=== PATIENT | male | born 1975 | race Caucasian/White ===

== ENCOUNTER → 2017-06-04 | Outpatient (CLI) | payer BC ==
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
== END | disposition home or self-care (01) ==
LOC: RADXRMAIN 16:30
PROVIDERS: ATTEND Orthopaedic Surgery
DX: Z47.89 Encounter for other orthopedic aftercare (principal); S72.90XA Unspecified fracture of unspecified femur, initial encounter for closed fracture

== ENCOUNTER → 2017-07-11 | Outpatient (CLI) | payer BC, OTHER ==
[2017-07-11 11:03] LABS: Basophils # (A) 0.1 k/uL (0-0.2); Basophils % (A) 1 %; Eosinophils # (A) 0.3 k/uL (0-0.7); Eosinophils % (A) 2 %; HCT 46.4 % (39.0-53.0); HGB 15.4 gm/dL (13.0-17.5); Lymphocytes % (A) 44 %; MCH 30.2 pg (25.0-35.0); MCHC 33.1 g/dL (31.0-37.0); MCV 91.3 fL (80.0-100.0); Mean Platelet Volume 6.9; Monocytes # (A) 0.6 k/uL (0-1.0); Monocytes % (A) 5 %; Neutrophils # (A) 5.1 k/uL (1.3-7.7); Neutrophils % (A) 45 %; Platelet Count 277 k/uL (150-450); RBC 5.09 m/uL (4.30-5.90); RDW 13.9 % (11.5-15.5); WBC 11.4 k/uL (3.8-10.6)
[2017-07-11 12:52] LABS: Erythrocyte Sedimentation Rate 2 mm/hr (0-15)
== END | disposition home or self-care (01) ==
LOC: LABWHC1 10:33
PROVIDERS: ATTEND Orthopaedic Surgery
DX: Z47.89 Encounter for other orthopedic aftercare (principal); S72.90XA Unspecified fracture of unspecified femur, initial encounter for closed fracture
CPT/HCPCS: 36415; 85025; 85652; 86140

== ENCOUNTER 2017-07-16 01:46 | Emergency (ER) | payer BC, OTHER ==
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
[2017-07-16 03:17] LABS: Amphetamine Screen,Urine Detected (NotDetected); Barbiturate Screen,Urine Not Detected (NotDetected); Benzodiazepines Screen,Urine Not Detected (NotDetected); Cocaine Screen,Urine Not Detected (NotDetected); Methadone Screen, Urine Not Detected (NotDetected); Opiate Screen,Urine Not Detected (NotDetected); Oxycodone Screen, Urine Not Detected (NotDetected); Phencyclidine Screen,Urine Not Detected (NotDetected); Tricyclic Antidepressant,Urine Not Detected (NotDetected); Urn Cannabinoid Scrn Detected (NotDetected)
[2017-07-16] MEDS ORDERED: NICOTINE 21MG/24HR PATCH TRANSDERM STA (04:08)
[2017-07-16 10:24] VITALS: BP 122/74; PULSE 105; RESP 16; TEMP 98.3
== END 2017-07-16 10:28 | disposition home or self-care (01) ==
LOC: EC 01:46
DX: F32.9 Major depressive disorder, single episode, unspecified (principal); F10.10 Alcohol abuse, uncomplicated; F17.200 Nicotine dependence, unspecified, uncomplicated
CPT/HCPCS: 99284; 82075; 80306; S4990

== ENCOUNTER 2021-07-13 10:51 | Inpatient (IN) | payer BC, OTHER ==
--- NOTE | 2021-07-13 11:33 | XR ---
EXAMINATION TYPE: XR chest 2V DATE OF EXAM: 07/13/2021 COMPARISON: Chest x-ray October 04, 2013 HISTORY: Difficulty in breathing. TECHNIQUE: Frontal and lateral views of the chest are obtained. FINDINGS: There is no focal air space opacity, pleural effusion, or pneumothorax seen. The cardiac silhouette size remains within normal limits. Slight underlying scoliotic curvature is noted. IMPRESSION: No acute cardiopulmonary process.
--- NOTE | 2021-07-13 11:42 | ED ---
General Adult HPI - General Chief complaint: Shortness of Breath Stated complaint: ETOH withdrawal Time Seen by Provider: 07/13/21 10:53 Source: patient, EMS, RN notes reviewed, old records reviewed Mode of arrival: EMS Limitations: no limitations - History of Present Illness Initial comments: 46-year-old male presenting from [place]. Patient was found to have a alcohol level greater than 300 and was sent to the emergency department for evaluation. He has had some dyspnea as well as chest discomfort. He admits to drinking today. He denies vomiting. Denies a known history of coronary artery disease. He is a current smoker. - Related Data Home Medications Medication Instructions Recorded Confirmed No Known Home Medications 07/13/21 07/13/21 Allergies Allergy/AdvReac Type Severity Reaction Status Date / Time walnut Allergy Swelling Verified 07/13/21 11:54 Review of Systems ROS Statement: Those systems with pertinent positive or pertinent negative responses have been documented in the HPI. ROS Other: All systems not noted in ROS Statement are negative. Past Medical History Past Medical History: Renal Disease History of Any Multi-Drug Resistant Organisms: None Reported Past Surgical History: Orthopedic Surgery Additional Past Surgical History / Comment(s): nasal surgery Past Anesthesia/Blood Transfusion Reactions: No Reported Reaction Past Psychological History: Anxiety Past Alcohol Use History: Occasional Past Drug Use History: Marijuana General Exam Limitations: no limitations General appearance: alert, appears intoxicated Head exam: Present: atraumatic, normocephalic Eye exam: Present: normal appearance, PERRL ENT exam: Present: normal exam Neck exam: Present: normal inspection. Absent: tenderness, meningismus Respiratory exam: Present: normal lung sounds bilaterally. Absent: respiratory distress, wheezes Cardiovascular Exam: Present: regular rate, normal rhythm GI/Abdominal exam: Present: soft. Absent: distended, tenderness Extremities exam: Present: normal inspection, normal capillary refill. Absent: pedal edema, calf tenderness Neurological exam: Present: alert, oriented X3, CN II-XII intact. Absent: motor sensory deficit Psychiatric exam: Present: depressed Skin exam: Present: warm, dry, intact. Absent: cyanosis, diaphoretic Course Vital Signs 07/13/21 07/13/21 07/13/21 10:59 11:21 12:11 Temperature 98.8 F Pulse Rate 92 96 Respiratory 16 17 19 Rate Blood Pressure 146/103 132/90 O2 Sat by Pulse 95 97 Oximetry EKG Findings - EKG Comments: EKG Findings:: EKG: Sinus rhythm with rate of 86, AL interval 142, QRS duration 98, QTC 419, no ST segment elevation. Medical Decision Making - Medical Decision Making 46-year-old male history of alcohol abuse presenting for evaluation prior to admission to [place] [id number]. Patient complained of some dyspnea and chest pain. Workup revealed a normal CBC with a mild thrombocytopenia. He has a significantly elevated d-dimer at 1.48 this was fo llowed up with CT angiography which is negative for pulmonary embolism. He has a CO2 of 18 and a lactic acidosis of 5.7 this treated with IV hydration this is not secondary to sepsis but secondary to dehydration from alcohol abuse. His alcohol level is 292. He'll be admitted for IV hydration, and Ativan according to [facility] protocol. I did discuss case with [facility]. - Lab Data Result diagrams: 07/13/21 11:15 07/13/21 11:15 Lab Results 07/13/21 07/13/21 07/13/21 Range/Units 11:15 11:15 11:15 WBC 9.2 (3.8-10.6) k/uL RBC 4.97 (4.30-5.90) m/uL Hgb 15.0 (13.0-17.5) gm/dL Hct 46.3 (39.0-53.0) % MCV 93.1 (80.0-100.0) fL MCH 30.2 (25.0-35.0) pg MCHC 32.4 (31.0-37.0) g/dL RDW 14.0 (11.5-15.5) % Plt Count 123 L (150-450) k/uL MPV 7.5 Neutrophils % 81 % Lymphocytes % 14 % Monocytes % 3 % Eosinophils % 0 % Basophils % 0 % Neutrophils # 7.4 (1.3-7.7) k/uL Lymphocytes # 1.3 (1.0-4.8) k/uL Monocytes # 0.3 (0-1.0) k/uL Eosinophils # 0.0 (0-0.7) k/uL Basophils # 0.0 (0-0.2) k/uL PT 10.4 (9.0-12.0) sec INR 1.0 (<1.2) APTT 23.9 (22.0-30.0) sec D-Dimer 1.48 H (<0.60) mg/L FEU Sodium 134 L (137-145) mmol/L Potassium 4.1 (3.5-5.1) mmol/L Chloride 92 L (98-107) mmol/L Carbon Dioxide 18 L (22-30) mmol/L Anion Gap 24 mmol/L BUN 14 (9-20) mg/dL Creatinine 0.87 (0.66-1.25) mg/dL Est GFR (CKD-EPI)AfAm >90 (>60 ml/min/1.73 sqM) Est GFR (CKD-EPI)NonAf >90 (>60 ml/min/1.73 sqM) Glucose 81 (74-99) mg/dL Plasma Lactic Acid Nahum (0.7-2.0) mmol/L Calcium 8.5 (8.4-10.2) mg/dL Total Bilirubin 1.2 (0.2-1.3) mg/dL AST 245 H (17-59) U/L ALT 156 H (4-49) U/L Alkaline Phosphatase 77 (38-126) U/L Troponin I (0.000-0.034) ng/mL Total Protein 7.7 (6.3-8.2) g/dL Albumin 4.4 (3.5-5.0) g/dL Serum Alcohol 292 H* mg/dL Coronavirus (PCR) (Not Detectd) Influenza Type A RNA (Not Detectd) Influenza Type B (PCR) (Not Detectd) 07/13/21 07/13/21 07/13/21 Range/Units 11:15 11:15 11:15 WBC (3.8-10.6) k/uL RBC (4.30-5.90) m/uL Hgb (13.0-17.5) gm/dL Hct (39.0-53.0) % MCV (80.0-100.0) fL MCH (25.0-35.0) pg MCHC (31.0-37.0) g/dL RDW (11.5-15.5) % Plt Count (150-450) k/uL MPV Neutrophils % % Lymphocytes % % Monocytes % % Eosinophils % % Basophils % % Neutrophils # (1.3-7.7) k/uL Lymphocytes # (1.0-4.8) k/uL Monocytes # (0-1.0) k/uL Eosinophils # (0-0.7) k/uL Basophils # (0-0.2) k/uL PT (9.0-12.0) sec INR (<1.2) APTT (22.0-30.0) sec D-Dimer (<0.60) mg/L FEU Sodium (137-145) mmol/L Potassium (3.5-5.1) mmol/L Chloride (98-107) mmol/L Carbon Dioxide (22-30) mmol/L Anion Gap mmol/L BUN (9-20) mg/dL Creatinine (0.66-1.25) mg/dL Est GFR (CKD-EPI)AfAm (>60 ml/min/1.73 sqM) Est GFR (CKD-EPI)NonAf (>60 ml/min/1.73 sqM) Glucose (74-99) mg/dL Plasma Lactic Acid Nahum 5.6 H* (0.7-2.0) mmol/L Calcium (8.4-10.2) mg/dL Total Bilirubin (0.2-1.3) mg/dL AST (17-59) U/L ALT (4-49) U/L Alkaline Phosphatase (38-126) U/L Troponin I <0.012 (0.000-0.034) ng/mL Total Protein (6.3-8.2) g/dL Albumin (3.5-5.0) g/dL Serum Alcohol mg/dL Coronavirus (PCR) (Not Detectd) Influenza Type A RNA Not Detected (Not Detectd) Influenza Type B (PCR) Not Detected (Not Detectd) 07/13/21 Range/Units 11:15 WBC (3.8-10.6) k/uL RBC (4.30-5.90) m/uL Hgb (13.0-17.5) gm/dL Hct (39.0-53.0) % MCV (80.0-100.0) fL MCH (25.0-35.0) pg MCHC (31.0-37.0) g/dL RDW (11.5-15.5) % Plt Count (150-450) k/uL MPV Neutrophils % % Lymphocytes % % Monocytes % % Eosinophils % % Basophils % % Neutrophils # (1.3-7.7) k/uL Lymphocytes # (1.0-4.8) k/uL Monocytes # (0-1.0) k/uL Eosinophils # (0-0.7) k/uL Basophils # (0-0.2) k/uL PT (9.0-12.0) sec INR (<1.2) APTT (22.0-30.0) sec D-Dimer (<0.60) mg/L FEU Sodium (137-145) mmol/L Potassium (3.5-5.1) mmol/L Chloride (98-107) mmol/L Carbon Dioxide (22-30) mmol/L Anion Gap mmol/L BUN (9-20) mg/dL Creatinine (0.66-1.25) mg/dL Est GFR (CKD-EPI)AfAm (>60 ml/min/1.73 sqM) Est GFR (CKD-EPI)NonAf (>60 ml/min/1.73 sqM) Glucose (74-99) mg/dL Plasma Lactic Acid Nahum (0.7-2.0) mmol/L Calcium (8.4-10.2) mg/dL Total Bilirubin (0.2-1.3) mg/dL AST (17-59) U/L ALT (4-49) U/L Alkaline Phosphatase (38-126) U/L Troponin I (0.000-0.034) ng/mL Total Protein (6.3-8.2) g/dL Albumin (3.5-5.0) g/dL Serum Alcohol mg/dL Coronavirus (PCR) Not Detected (Not Detectd) Influenza Type A RNA (Not Detectd) Influenza Type B (PCR) (Not Detectd) Disposition Clinical Impression: Alcohol intoxication, Lactic acidosis, Dehydration Disposition: ADMITTED IP TO THIS HOSP Condition: Stable Is patient prescribed a controlled substance at d/c from ED?: No Referrals: None,Stated [Primary Care Provider] - 1-2 days Time of Disposition: 13:15
[2021-07-13 11:51] LABS: Partial Thromboplastin Time 23.9 sec (22.0-30.0); Prothrombin Time 10.4 sec (9.0-12.0)
[2021-07-13 11:57] LABS: ALT 156 U/L (4-49); AST 245 U/L (17-59); African American GFR (CKD) >90 (>60 ml/min/1.73 sqM); Albumin 4.4 g/dL (3.5-5.0); Alkaline Phosphatase 77 U/L (38-126); Anion Gap 24 mmol/L; Blood Urea Nitrogen 14 mg/dL (9-20); Calcium 8.5 mg/dL (8.4-10.2); Carbon Dioxide 18 mmol/L (22-30); Chloride 92 mmol/L (98-107); Glucose 81 mg/dL (74-99); Non-African American GFR(CKD) >90 (>60 ml/min/1.73 sqM); Potassium 4.1 mmol/L (3.5-5.1); Sodium 134 mmol/L (137-145); Total Bilirubin 1.2 mg/dL (0.2-1.3); Total Protein 7.7 g/dL (6.3-8.2)
[2021-07-13 12:01] LABS: Basophils % (A) 0 %; Eosinophils % (A) 0 %; HCT 46.3 % (39.0-53.0); Lymphocytes # (A) 1.3 k/uL (1.0-4.8); Lymphocytes % (A) 14 %; MCH 30.2 pg (25.0-35.0); MCHC 32.4 g/dL (31.0-37.0); MCV 93.1 fL (80.0-100.0); Mean Platelet Volume 7.5; Monocytes # (A) 0.3 k/uL (0-1.0); Monocytes % (A) 3 %; Neutrophils # (A) 7.4 k/uL (1.3-7.7); Neutrophils % (A) 81 %; Platelet Count 123 k/uL (150-450); RBC 4.97 m/uL (4.30-5.90); WBC 9.2 k/uL (3.8-10.6)
[2021-07-13 12:15] LABS: Alcohol 292 mg/dL
[2021-07-13] MEDS ORDERED: SODIUM CHLORIDE 0.9% 1,000 ML IV ONE (12:16)
[2021-07-13] MEDS ORDERED: THIAMINE 100 MG/ML 2 ML VIAL IM STA (12:28)
[2021-07-13] MEDS ORDERED: SODIUM CHLORIDE 0.9% 1,000 ML IV STA (12:47)
--- NOTE | 2021-07-13 13:04 | CT ---
EXAMINATION TYPE: CT angio chest DATE OF EXAM: 07/13/2021 COMPARISON: Chest x-ray earlier today HISTORY: chest pain, SOB CT DLP: 313.8 mGycm. Automated Exposure Control for Dose Reduction was Utilized. CONTRAST: CTA scan of the thorax is performed with IV Contrast, patient injected with 68cc mL of Isovue 370, pu lmonary embolism protocol. MIP Images are created on CT scanner and reviewed. FINDINGS: LUNGS: Suboptimal study as there is some motion artifact at multiple levels limiting evaluation for s ubcentimeter nodules. No suspicious focal consolidations. No pleural effusion or pneumonia thorax see n bilaterally. Tracheobronchial tree is patent. MEDIASTINUM: There is satisfactory enhancement of the pulmonary artery and its branches, there is no CT evidence for pulmonary embolism. Satisfactory enhancement of the thoracic aorta without aneurysm or dissection. There are no greater than 1 cm hilar or mediastinal lymph nodes. No cardiomegaly or pericardial effusion is seen. Moderate to severe concentric wall thickening begins above the brooke e xtending to level of the diaphragmatic hiatus. OTHER: Visualized portion of liver is markedly heterogeneously hypodense and prominent in size. IMPRESSION: 1. No CT evidence for acute pulmonary embolism. 2. No suspicious acute pulmonary process. 3. Probable hepatomegaly and fatty hepatocellular disease. 4. Long segment thickening of the mid to distal esophagus, correlate to exclude esophagitis. Reflux e sophagitis would be in differential. Correlate clinically.
[2021-07-13] MEDS ORDERED: HYDROmorphone 0.5 MG/0.5 ML SYRINGE IVP STA (13:06)
[2021-07-13] MEDS ORDERED: NALOXONE 0.4 MG/ML 1 ML VIAL IV PRN (13:24)
[2021-07-13] MEDS ORDERED: PANTOPRAZOLE 40 MG/10 ML VIAL IVP STA (13:24)
[2021-07-13] MEDS ORDERED: NICOTINE GUM (POLACRILEX) 2 MG GUM BUCCAL PRN (14:03)
--- NOTE | 2021-07-13 14:32 | P.HPIM ---
History of Present Illness H&P Date: 07/13/21 History of Presenting Illness: Patient is a very pleasant 46-year-old male with a past medical history of daily EtOH use/abuse and nicotine dependence. He presented to the emergency department from [place] after being found to have an alcohol level greater than 300 and was sent to the emergency department for admission for medical detox prior to returning to [place] for inpatient admission. Upon arrival to the emergency department patient did report feeling mild shortness of breath, chest discomfort, and nausea. He underwent full evaluation. Labs revealing mi ld thrombocytopenia with platelet count of 123, d-dimer elevated at 1.48, sodium 134, and alcohol ketoacidosis with alcohol 292, lactate 5.6, chloride 92, CO2 18, and anion gap of 24. EKG completed revealing sinus rhythm at 86 beats per minute. Troponin negative at less than 0.012. Chest x-ray negative for acute cardiopulmonary process. D-dimer elevated at 1.48. CTA negative for PE revealing probable hepatomegaly and fatty hepatocellular disease with long segment thickening of the mid to distal esophagus. Review of systems: Pertinent positives and negatives as discussed in HPI, a complete review of systems was performed and all other systems are negative. Physical exam: Vital signs reviewed and stable. General: Nontoxic, no distress and appears stated age. Derm: Skin warm and dry, normal coloration for ethnicity. Head: Atraumatic, normocephalic and symmetric. Eyes: EOMs intact, no lid lag, and anicteric sclera Mouth: no lip lesions, mucus membranes moist Cardiovascular: regular rate and rhythm with normal S1S2, no murmur, positive posterior tibial pulses bilaterally, and cap refill < 2 seconds. Lungs: Respirations even, regular, and unlabored on room air. Lungs CTA bilaterally, no rhonchi, no rales, no wheezing, and no accessory muscle usage. Abdominal: soft, nontender to palpation, no guarding, no appreciable organomegaly Ext: ROM intact. No gross muscle atrophy, no edema, no contractures Neuro: Speech clear, face symmetrical and CN II-XII grossly intact with no noted focal neuro deficits Psych: Alert and oriented to person, place, time, and situation. Appropriate and pleasant affect. Assessment and Plan of Care: Alcohol intoxication pending withdrawal Alcohol abuse Alcohol ketoacidosis Concerns of hepatomegaly and fatty hepatocellular disease -[facility] Protocol with symptom triggered medication management with benzodiazepines. -Patient received 2 L bolus in the ER and will receive Continuous IV hydration. -Thiamine 100 mg twice a day -Multivitamin daily -Folate 1 mg daily -Seizure, fall, aspiration, and elopement precautions in place. -Continued close monitoring of electrolytes and replace as needed. -Telemetry monitoring. -Recommend outpatient follow-up with GI for further evaluation of hepatomegaly and fatty hepatocellular disease with long segment thickening of the mid to distal esophagitis. Nicotine dependence -Patient encourage and educated on the benefits of smoking cessation and risks of continued use. -Patient provided with nicotine patch and nicotine gum secondary to smoking greater than one pack of cigarettes daily. Esophageal thickening -Possibly secondary to reflux esophagitis, recommend outpatient follow-up with gastroenterology for EGD to further evaluate and accurately diagnose. The patient is admitted with an anticipated less than 2 midnight stay for evaluation of alcohol intoxication pending withdrawal CODE STATUS: Full code DVT prophylaxis: Heparin Discussed with: Patient and RN Anticipated discharge date: 1-[address]: Patient plans to go to [facility] inpatient rehab upon discharge from hospital. A total of 40 minutes was spent on the care of this complex patient more than 50% of the time was spent in counseling and care coordination. Past Medical History Past Medical History: Renal Disease History of Any Multi-Drug Resistant Organisms: None Reported Past Surgical History: Orthopedic Surgery Additional Past Surgical History / Comment(s): nasal surgery Past Anesthesia/Blood Transfusion Reactions: No Reported Reaction Past Psychological History: Anxiety Past Alcohol Use History: Occasional Past Drug Use History: Marijuana Medications and Allergies Home Medications Medication Instructions Recorded Confirmed Type No Known Home Medications 07/13/21 07/13/21 History Allergies Allergy/AdvReac Type Severity Reaction Status Date / Time walnut Allergy Swelling Verified 07/13/21 11:54 Physical Exam Vitals: Vital Signs Temp Pulse Resp BP Pulse Ox 07/13/21 12:11 96 19 132/90 97 07/13/21 11:21 17 07/13/21 10:59 98.8 F 92 16 146/103 95 Intake and Output 07/12/21 07/13/21 07/13/21 22:59 06:59 14:59 Other: Weight 81.647 kg Results CBC & Chem 7: 07/13/21 11:15 07/13/21 11:15 Labs: Abnormal Lab Results - Last 24 Hours (Table) 04/07/13/21 07/13/21 Range/Units 11:15 11:15 11:15 Plt Count 123 L (150-450) k/uL D-Dimer 1.48 H (<0.60) mg/L FEU Sodium 134 L (137-145) mmol/L Chloride 92 L (98-107) mmol/L Carbon Dioxide 18 L (22-30) mmol/L Plasma Lactic Acid Nahum (0.7-2.0) mmol/L AST 245 H (17-59) U/L ALT 156 H (4-49) U/L Serum Alcohol 292 H* mg/dL 07/13/21 Range/Units 11:15 Plt Count (150-450) k/uL D-Dimer (<0.60) mg/L FEU Sodium (137-145) mmol/L Chloride (98-107) mmol/L Carbon Dioxide (22-30) mmol/L Plasma Lactic Acid Nahum 5.6 H* (0.7-2.0) mmol/L AST (17-59) U/L ALT (4-49) U/L Serum Alcohol mg/dL
[2021-07-13] MEDS: NICOTINE 21MG/24HR PATCH TRANSDERM SCH (15:27)
[2021-07-13] MEDS: LORazepam 2 MG/ML INJ IV PRN ×3 (15:55→21:03)
[2021-07-13] MEDS: SODIUM CHLORIDE 0.9% 1,000 ML IV SCH (18:28)
[2021-07-13] MEDS: HEPARIN SODIUM,PORCINE/PF 5,000 UNIT/0.5 ML SYRINGE SQ SCH ×2 (20:52→21:06)
[2021-07-13] MEDS: THIAMINE 100 MG TAB PO SCH (21:04)
[2021-07-13] MEDS ORDERED: HYDROcodone/APAP 5-325MG 1 EACH TAB PO STA (21:12)
[2021-07-14] MEDS: LORazepam 2 MG/ML INJ IV PRN ×10 (00:42→22:01)
[2021-07-14] MEDS: HEPARIN SODIUM,PORCINE/PF 5,000 UNIT/0.5 ML SYRINGE SQ SCH ×2 (07:23→16:40)
[2021-07-14] MEDS: FOLIC ACID 1 MG TAB PO SCH (07:33)
[2021-07-14] MEDS: THIAMINE 100 MG TAB PO SCH ×2 (07:33→16:40)
[2021-07-14] MEDS: NICOTINE 21MG/24HR PATCH TRANSDERM SCH (07:33)
[2021-07-14] MEDS: MULTIVITAMINS, THERA 1 EACH TAB PO SCH (07:33)
[2021-07-14] MEDS: SODIUM CHLORIDE 0.9% 1,000 ML IV SCH ×2 (11:38→15:40)
[2021-07-14] MEDS: HYDROcodone/APAP 5-325MG 1 EACH TAB PO PRN ×2 (12:20→18:41)
--- NOTE | 2021-07-14 12:38 | P.PN ---
Subjective Progress Note Date: 07/14/21 Principal diagnosis: Alcohol withdrawal Patient is a very pleasant 46-year-old male with a past medical history of daily EtOH use/abuse and nicotine dependence. He presented to the emergency department from [place] after being found to have an alcohol level greater than 300 and was sent to the emergency department for admission for medical detox prior to returning to [place] for inpatient admission. Upon arrival to the emergency department patient did report feeling mild shortness of breath, chest discomfort, and nausea. He underwent full evaluation. Labs revealing mild thrombocytopenia with platelet count of 123, d-dimer elevated at 1.48, sodium 134, and alcohol ketoacidosis with alcohol 292, lactate 5.6, chloride 92, CO2 18, and anion gap of 24. EKG completed revealing sinus rhythm at 86 beats per minute. Troponin negative at less than 0.012. Chest x-ray negative for acute cardiopulmonary process. D-dimer elevated at 1.48. CTA negative for PE revealing probable hepatomegaly and fatty hepatocellular disease with long segment thickening of the mid to distal esophagus. 07/14/2021: Patient seen and examined. He is complaining of some generalized pain and discomfort. He continues to have some symptoms of alcohol withdrawal with anxiety. He is having some mild tremors. Discussed with nursing staff. Patient did receive IV Ativan this morning. Per CIWA scale Objective - Vital Signs Vital signs: Vital Signs Temp 99.0 F 07/14/21 08:00 Pulse 106 H 07/14/21 08:00 Resp 18 07/14/21 08:00 BP 115/82 07/14/21 08:00 Pulse Ox 96 07/14/21 08:00 Intake & Output 07/13/21 07/14/21 07/14/21 18:59 06:59 18:59 Weight 81.647 kg Other: Voiding Method Toilet # Voids 3 - Exam Vital signs reviewed and stable. General: Nontoxic, no distress and appears stated age. Derm: Skin warm and dry, normal coloration for ethnicity. Head: Atraumatic, normocephalic and symmetric. Eyes: EOMs intact, no lid lag, and anicteric sclera Mouth: no lip lesions, mucus membranes moist Cardiovascular: regular rate and rhythm with normal S1S2, no murmur, positive posterior tibial pulses bilaterally, and cap refill < 2 seconds. Lungs: Respirations even, regular, and unlabored on room air. Lungs CTA bilaterally, no rhonchi, no rales, no wheezing, and no accessory muscle usage. Abdominal: soft, nontender to palpation, no guarding, no appreciable organomegaly Ext: ROM intact. No gross muscle atrophy, no edema, no contractures Neuro: Speech clear, face symmetrical and CN II-XII grossly intact with no noted focal neuro deficits Psych: Alert and oriented to person, place, time, and situation. Appropriate and pleasant affect. - Labs CBC & Chem 7: 07/13/21 11:15 07/13/21 11:15 Labs: Abnormal Lab Results - Last 24 Hours (Table) 07/13/21 07/13/21 07/13/21 Range/Units 14:29 17:33 20:53 Plasma Lactic Acid [place] 2.7 H* 2.4 H* 2.3 H* (0.7-2.0) mmol/L Assessment and Plan (1) Alcohol intoxication Current Visit: Yes Status: Acute Code(s): F10.929 - ALCOHOL USE, UNSPECIFIED WITH INTOXICATION, UNSPECIFIED SNOMED Code(s): 54682147 Plan: Alcohol intoxication pending withdrawal Alcohol abuse Alcohol ketoacidosis Concerns of hepatomegaly and fatty hepatocellular disease -Patient's overall symptoms improving. He is still requiring IV Ativan per CIWA protocol. Patient's last dose of IV Ativan was this morning. -Patient started on treatment with Librium to wean withdrawal symptoms -Patient received 2 L bolus in the ER and will receive Continuous IV hydration. -Thiamine 100 mg twice a day -Multivitamin daily -Folate 1 mg daily -Seizure, fall, aspiration, and elopement precautions in place. -Continued close monitoring of electrolytes and replace as needed. -Telemetry monitoring. -Recommend outpatient follow-up with GI for further evaluation of hepatomegaly and fatty hepatocellular disease with long segment thickening of the mid to distal esophagitis. Nicotine dependence -Patient encourage and educated on the benefits of smoking cessation and risks of continued use. -Patient provided with nicotine patch and nicotine gum secondary to smoking greater than one pack of cigarettes daily. Esophageal thickening -Possibly secondary to reflux esophagitis, recommend outpatient follow-up with gastroenterology for EGD to further evaluate and accurately diagnose. -Protonix daily Lactic acidosis -Resolved with IV fluids The patient is admitted with an anticipated less than 2 midnight stay for evaluation of alcohol intoxication pending withdrawal CODE STATUS: Full code DVT prophylaxis: Heparin Discussed with: Patient and RN Anticipated discharge date: Next 24-48 hours Patient states that he intends to go to [facility] following discharge. Discussed with nursing staff to attempt to arrange po ssible discharge to [place] tomorrow. Patient needs 1 more day of withdrawal symptom management in the hospital
[2021-07-14 13:32] VITALS: BMI 27.3
[2021-07-14] MEDS: chlordiazePOXIDE 25 MG CAP PO SCH ×2 (16:40→22:05)
[2021-07-15] MEDS: LORazepam 2 MG/ML INJ IV PRN ×7 (00:35→16:37)
[2021-07-15] MEDS: HEPARIN SODIUM,PORCINE/PF 5,000 UNIT/0.5 ML SYRINGE SQ SCH ×3 (00:38→16:37)
[2021-07-15] MEDS: HYDROcodone/APAP 5-325MG 1 EACH TAB PO PRN ×4 (00:53→21:00)
[2021-07-15] MEDS: SODIUM CHLORIDE 0.9% 1,000 ML IV SCH ×2 (05:34→17:08)
[2021-07-15] MEDS: chlordiazePOXIDE 25 MG CAP PO SCH ×3 (07:37→21:00)
[2021-07-15] MEDS: NICOTINE 21MG/24HR PATCH TRANSDERM SCH (07:37)
[2021-07-15] MEDS: MULTIVITAMINS, THERA 1 EACH TAB PO SCH (07:38)
[2021-07-15] MEDS: PANTOPRAZOLE 40 MG TABLET PO SCH (07:38)
[2021-07-15] MEDS: THIAMINE 100 MG TAB PO SCH ×2 (07:38→16:37)
[2021-07-15] MEDS: FOLIC ACID 1 MG TAB PO SCH (07:38)
[2021-07-15 09:31] LABS: African American GFR (CKD) 129.7 (60.0-200.0); Albumin 4.1 g/dL (3.8-4.9); Albumin/Globulin Ratio 1.71 (1.60-3.17); Anion Gap 13.2 mmol/L (10.00-18.00); BUN/Creat Ratio 12.57 Ratio (12.00-20.00); Blood Urea Nitrogen 9.2 mg/dL (9.0-27.0); Calcium 9.1 mg/dL (8.7-10.3); Carbon Dioxide 25.7 mmol/L (20.0-27.5); Globulin 2.4 g/dL (1.6-3.3); Non-African American GFR(CKD) 111.9 (60.0-200.0); Potassium 3.4 mmol/L (3.5-5.5); Total Protein 6.6 g/dL (6.2-8.2)
[2021-07-15] MEDS ORDERED: POTASSIUM CHLORIDE ER 20 MEQ TAB.ER PO STA (10:12)
--- NOTE | 2021-07-15 17:19 | P.PN ---
Subjective Progress Note Date: 07/15/21 Principal diagnosis: Alcohol withdrawal Patient is a very pleasant 46-year-old male with a past medical history of daily EtOH use/abuse and nicotine dependence. He presented to the emergency department from [place] after being found to have an alcohol level greater than 300 and was sent to the emergency department for admission for medical detox prior to returning to [place] for inpatient admission. Upon arrival to the emergency department patient did report feeling mild shortness of breath, chest discomfort, and nausea. He underwent full evaluation. Labs revealing mild thrombocytopenia with platelet count of 123, d-dimer elevated at 1.48, sodium 134, and alcohol ketoacidosis with alcohol 292, lactate 5.6, chloride 92, CO2 18, and anion gap of 24. EKG completed revealing sinus rhythm at 86 beats per minute. Troponin negative at less than 0.012. Chest x-ray negative for acute cardiopulmonary process. D-dimer elevated at 1.48. CTA negative for PE r evealing probable hepatomegaly and fatty hepatocellular disease with long segment thickening of the mid to distal esophagus. 07/15/2021: Patient seen and examined. He is complaining of some generalized pain and discomfort. He continues to have some symptoms of alcohol withdrawal with anxiety. He has received 6 mg of Ativan IV today along with Librium. Objective - Vital Signs Vital signs: Vital Signs Temp 97.8 F 07/15/21 14:00 Pulse 101 H 07/15/21 14:00 Resp 18 07/15/21 14:00 BP 119/87 07/15/21 14:00 Pulse Ox 98 07/15/21 14:00 Intake & Output 07/14/21 07/15/21 07/15/21 18:59 06:59 18:59 Intake Total 1080 900 Balance 1080 900 Weight 81.647 kg Intake: Intake, IV Titration 900 Amount Sodium Chloride 0.9% 1, 900 000 ml @ 75 mls/hr IV . [id number] CHARANJIT Rx#:[id number] Oral 1080 Other: Voiding Method Toilet # Voids 3 3 - Exam General: [non toxic], [no distress], [tremulous] Derm: [warm], [dry] Head: [atraumatic], [normocephalic], [symmetric] Eyes: [EOMI], [no lid lag], [anicteric sclera] Mouth: [no lip lesion], [mucus membranes moist] Cardiovascular: [S1S2 reg], [no murmur], [positive DP pulse bilateral], Lungs: [CTA bilateral], [no rhonchi, no rales] , [no accessory muscle use] Abdominal: [soft], [ nontender to palpation] Ext: [no gross muscle atrophy], [no edema], [no contractures] Neuro: [no focal neuro deficits] Psych: [Alert], [oriented], [appropriate affect] - Labs CBC & Chem 7: 07/13/21 11:15 07/15/21 04:48 Labs: Abnormal Lab Results - Last 24 Hours (Table) 07/15/21 Range/Units 04:48 Potassium 3.4 L (3.5-5.5) mmol/L Glucose 118 H (70-110) mg/dL AST 96 H (14-35) U/L ALT 103 H (10-49) U/L Assessment and Plan Assessment: Alcohol intoxication pending withdrawal Alcohol abuse Alcohol ketoacidosis Concerns of hepatomegaly and fatty hepatocellular disease -Patient's overall symptoms improving. He is still requiring IV Ativan per CIWA protocol. He has received 6 mg of IV Ativan today. -Librium will be increased. -Patient received 2 L bolus in the ER and will receive Continuous IV hydration at 75 cc/h. -Thiamine 100 mg twice a day -Multivitamin daily -Folate 1 mg daily -Seizure, fall, aspiration, and elopement precautions in place. -Continued close monitoring of electrolytes and replace as needed. -Telemetry monitoring. -Recommend outpatient follow-up with GI for further evaluation of hepatomegaly and fatty hepatocellular disease with long segment thickening of the mid to distal esophagitis. Nicotine dependence -Patient encourage and educated on the benefits of smoking cessation and risks of continued use. -Patient provided with nicotine patch and nicotine gum secondary to smoking greater than one pack of cigarettes daily. Esophageal thickening -Possibly secondary to reflux esophagitis, recommend outpatient follow-up with gastroenterology for EGD to further evaluate and accurately diagnose. -Protonix daily Lactic acidosis -Resolved with IV fluids The patient is admitted with an anticipated less than 2 midnight stay for evaluation of alcohol intoxication pending withdrawal CODE STATUS: Full code DVT prophylaxis: Heparin Discussed with: Patient and RN Anticipated discharge date: 1-2 days Patient states that he intends to go to [facility] following discharge. Will discuss with case management tomorrow regarding discharging patient straight to [place] tomorrow.
[2021-07-16] MEDS: HEPARIN SODIUM,PORCINE/PF 5,000 UNIT/0.5 ML SYRINGE SQ SCH ×2 (00:08→07:57)
[2021-07-16] MEDS: LORazepam 2 MG/ML INJ IV PRN (00:22)
[2021-07-16] MEDS: HYDROcodone/APAP 5-325MG 1 EACH TAB PO PRN (04:27)
[2021-07-16 07:52] VITALS: BP 127/88; PULSE 91; RESP 19; TEMP 97.5
[2021-07-16] MEDS: NICOTINE 21MG/24HR PATCH TRANSDERM SCH (07:56)
[2021-07-16] MEDS: MULTIVITAMINS, THERA 1 EACH TAB PO SCH (07:56)
[2021-07-16] MEDS: THIAMINE 100 MG TAB PO SCH (07:56)
[2021-07-16] MEDS: FOLIC ACID 1 MG TAB PO SCH (07:56)
[2021-07-16] MEDS: PANTOPRAZOLE 40 MG TABLET PO SCH (07:56)
[2021-07-16] MEDS: chlordiazePOXIDE 25 MG CAP PO SCH (07:58)
[2021-07-16] MEDS: SODIUM CHLORIDE 0.9% 1,000 ML IV SCH (08:18)
[2021-07-16] MEDS ORDERED: POTASSIUM CHLORIDE ER 20 MEQ TAB.ER PO STA (10:36)
[2021-07-16 11:11] LABS: African American GFR (CKD) 124.9 (60.0-200.0); Anion Gap 12.1 mmol/L (10.00-18.00); BUN/Creat Ratio 15.96 Ratio (12.00-20.00); Blood Urea Nitrogen 12.8 mg/dL (9.0-27.0); Calcium 9.4 mg/dL (8.7-10.3); Carbon Dioxide 22.5 mmol/L (20.0-27.5); Non-African American GFR(CKD) 107.8 (60.0-200.0); Potassium 4.3 mmol/L (3.5-5.5)
--- NOTE | 2021-07-16 11:20 | P.DS ---
Providers Date of admission: 07/16/21 08:02 Expected date of discharge: 07/16/21 Attending physician: Mariah Zamora DO Primary care physician: Stated None Hospital Course: Patient is a very pleasant 46-year-old male with a past medical history of daily EtOH use/abuse and nicotine dependence. He presented to the emergency department from [place] after being found to have an alcohol level greater than 300 and was sent to the emergency department for admission for medical detox prior to returning to [place] for inpatient admission. Upon arrival to the emergency department patient did report feeling mild shortness of breath, chest discomfort, and nausea. He underwent full evaluation. Labs revealing mild thrombocytopenia with platelet count of 123, d-dimer elevated at 1.48, sodium 134, and alcohol ketoacidosis with alcohol 292, lactate 5.6, chloride 92, CO2 18, and anion gap of 24. EKG completed revealing sinus rhythm at 86 beats per minute. Troponin negative at less than 0.012. Chest x-ray negative for acute cardiopulmonary process. D-dimer elevated at 1.48. CTA negative for PE revealing probable hepatomegaly and fatty hepatocellular disease with long segment thickening of the mid to distal esophagus. Patient was started on CIWA protocol given Ativan as needed. Librium was added. Potassium was replaced. Lactic acidosis resolved with IV hydration. Transaminitis improved. Patient was seen and examined on 07/16/2021. He reported improvement in withdrawal symptoms. He has not gotten any Ativan IV since midnight. Patient agreeable to go to [place]. Anticipated discharge is today. Patient advised follow up with PCP within 1-2 days. Advised follow up with Gastroenterology on 08/28/2021 to evaluate esophageal wall thickening. This complex discharge took about 45 minutes to complete. General: [non toxic], [no distress], [appears at stated age] Derm: [warm], [dry] Head: [atraumatic], [normocephalic], [symmetric] Eyes: [EOMI], [no lid lag], [anicteric sclera] Mouth: [no lip lesion], [mucus membranes moist] Cardiovascular: [S1S2 reg], [no murmur] Lungs: [CTA bilateral], [no rhonchi, no rales] , [no accessory muscle use] Abdominal: [soft], [ nontender to palpation], [no guarding], [no appreciable organomegaly] Ext: [no gross muscle atrophy], [no edema], [no contractures] Neuro: [no focal neuro deficits] Psych: [Alert], [oriented], [appropriate affect] Discharge diagnosis: Alcohol intoxication pending withdrawal Alcohol abuse Alcohol ketoacidosis Concerns of hepatomegaly and fatty hepatocellular disease Nicotine dependence Esophageal thickening Lactic acidosis Pertinent Studies: Chest Xray Chest CTA Patient Condition at Discharge: Stable Plan - Discharge Summary Discharge Rx Participant: No New Discharge Prescriptions: New Nicotine 21Mg/24Hr Patch [Habitrol] 1 patch TRANSDERM DAILY patch chlordiazePOXIDE HCl [Librium] 50 mg PO TID cap HYDROcodone/APAP 5-325MG [[place] 5-325] 1 each PO Q6HR PRN tab PRN Reason: Pain Folic Acid 1 mg PO DAILY tab Multivitamins, Thera [Multivitamin (formulary)] 1 each PO DAILY tab Pantoprazole [Protonix] 40 mg PO AC-BRKFST tab Thiamine [Vitamin B-1] 100 mg PO BID-W/MEALS tab Discharge Medication List Folic Acid 1 mg PO DAILY tab 07/16/21 [Rx] HYDROcodone/APAP 5-325MG [[place] 5-325] 1 each PO Q6HR PRN tab 07/16/21 [Rx] Multivitamins, Thera [Multivitamin (formulary)] 1 each PO DAILY tab 07/16/21 [Rx] Nicotine 21Mg/24Hr Patch [Habitrol] 1 patch TRANSDERM DAILY patch 07/16/21 [Rx] Pantoprazole [Protonix] 40 mg PO AC-BRKFST tab 07/16/21 [Rx] Thiamine [Vitamin B-1] 100 mg PO BID-W/MEALS tab 07/16/21 [Rx] chlordiazePOXIDE HCl [Librium] 50 mg PO TID cap 07/16/21 [Rx] Follow up Appointment(s)/Referral(s): Anais Murcia MD [STAFF PHYSICIAN] - 08/28/21 1:00 pm None,Stated [Primary Care Provider] - 1-2 days Activity/Diet/Wound Care/Special Instructions: Activity: As tolerated. Take breaks as needed. Diet: Heart healthy and carb consistent diet. Avoid salts, or foods with hidden salts such as canned or boxed foods and frozen dinners. Extra salt makes your heart work harder and traps the fluid in your body for longer. Special Instructions: Take all of your medications as directed and remember to keep all of your doctor's appointments and follow-up as needed. Your CT revealed mild Esophageal thickening and fatty hepatocellular disease, it is recommended that you follow-up outpatient with gastroenterology for EGD and additional testing to further evaluate and accurately diagnose. Thank you for allowing us to participate in your care, it was truly a pleasure having you for our patient!!! Please avoid drinking any alcohol. Discharge Disposition: OTHER INSTITUTION NOT DEFINED
== END 2021-07-16 14:14 | disposition other institution (70) | DRG 897 ==
LOC: EC 10:51 → 4SSUR 13:24 → OBSVTOIN 07-16 08:02
PROVIDERS: ADMIT Internal Medicine; ATTEND Internal Medicine
PROC: HZ2ZZZZ Detoxification Services for Substance Abuse Treatment (ICD-10-PCS; principal; 2021-07-16)
DX: F10.239 Alcohol dependence with withdrawal, unspecified (principal); E87.2 Acidosis; F10.229 Alcohol dependence with intoxication, unspecified; F17.210 Nicotine dependence, cigarettes, uncomplicated; Z20.822 Contact with and (suspected) exposure to COVID-19; F41.9 Anxiety disorder, unspecified; Y90.8 Blood alcohol level of 240 mg/100 ml or more; E86.0 Dehydration; D69.6 Thrombocytopenia, unspecified; K22.89 Other specified disease of esophagus; Z71.41 Alcohol abuse counseling and surveillance of alcoholic; Z71.6 Tobacco abuse counseling
CPT/HCPCS: 36415; 71046; 71275; 80048; 80053; 80320; 83605; 84484; 85025; 85379; 85610; 85730; 87502; 87635; 93005; 96361; 96372; 96374; 96375; 99285